=== PATIENT | male | born 1985 | race Caucasian/White ===

== ENCOUNTER 2022-12-09 11:18 | Outpatient (REF) | payer OTHER, SELFPAY ==
--- NOTE | ~2022-12-09 | XR_ITS ---
EXAMINATION: XR ELBOW, LEFT CLINICAL INFORMATION: Left elbow pain COMPARISON: 02/23/2019 TECHNIQUE: AP, lateral, and oblique views of the left elbow. FINDINGS: The bones and soft tissues are normal. No fracture or joint effusion. Alignment is anatomic. Joint spaces are maintained. Insertional enthesopathy noted. XR/XR elbow LT 2V IMPRESSION: No acute fracture or dislocation. Insertional enthesopathy noted.
== END 2022-12-09 11:19 | disposition home or self-care (01) ==
LOC: HO.XRAY 11:18
PROVIDERS: PCP Nurse Practitioner Family; Visit Provider Nurse Practitioner Family
DX: M25.522 Pain in left elbow (principal)
CPT/HCPCS: 73070

== ENCOUNTER 2023-02-02 11:52 | Outpatient (REF) | payer OTHER, SELFPAY ==
[2023-02-02 12:15] LABS: Hematocrit 44.8 % (42.0-52.0); Mean Corpuscular HGB Conc 35.7 g/dl (31.0-36.0); Mean Corpuscular Hemoglobin 32.9 pg (27.0-33.0); Mean Platelet Volume 9.5 fL (9.4-12.4); Platelet Count 193 X10*3/uL (160-400); Red Blood Count 4.87 X10*6/uL (4.60-5.80); Red Cell Distribution Width 13.4 % (11.0-16.0); White Blood Count 6.6 X10*3/uL (4.8-10.8)
[2023-02-02 12:30] LABS: Estimated Average Glucose 85 mg/dL; Hemoglobin A1c % 4.6 %
[2023-02-02 14:00] LABS: Vitamin D 25-OH Total 14.4 ng/mL (>30)
[2023-02-02 14:14] LABS: Alanine Aminotransferase 34 U/L (0-40); Albumin Level 4.6 g/dL (3.5-5.0); Alkaline Phosphatase 46 U/L (39-117); Anion Gap 17 (12-20); Aspartate Amino Transferase 30 U/L (5-37); Bilirubin Total 0.9 mg/dL (0.0-1.0); Blood Urea Nitrogen 15 mg/dL (9-16); Calcium 9.6 mg/dL (8.4-10.2); Carbon Dioxide 28 mmol/L (22-29); Chloride 100 mmol/L (96-108); Cholesterol 219 mg/dL; Estimated Glomerular Filt Rate > 60; Glucose Random 78 mg/dL (60-115); HDL Cholesterol 81 mg/dL; LDL Cholesterol Calculated 125 mg/dl; Potassium 4.2 mmol/L (3.3-5.1); Sodium 141 mmol/L (135-145); Total Protein 7.4 g/dL (6.5-8.0); Triglycerides 66 mg/dL
== END 2023-02-02 11:53 | disposition home or self-care (01) ==
LOC: HO.LAB 11:52
PROVIDERS: Visit Provider Nurse Practitioner Family
DX: Z13.0 Encounter for screening for diseases of the blood and blood-forming organs and certain disorders involving the immune mechanism (principal); Z13.29 Encounter for screening for other suspected endocrine disorder; Z13.220 Encounter for screening for lipoid disorders; Z13.21 Encounter for screening for nutritional disorder; E78.00 Pure hypercholesterolemia, unspecified; E03.9 Hypothyroidism, unspecified
CPT/HCPCS: 36415; 80053; 80061; 82306; 83036; 84443; 85027

== ENCOUNTER 2023-02-06 14:30 | Outpatient (RCR) | payer OTHER, SELFPAY ==
--- NOTE | 2022-12-26 08:05 | MHC.OT.EP ---
[address] [phone] Occupational Therapy Plan of Care Patient Name: Robert Leach Date of Evaluation: 12/26/22 Diagnosis: Left elbow pain Pain Location: Most pain free at rest Sharp/sore pain with use Radiates volar forearm to hand Pain Score: 8 Pain Scale Used: Numeric (0 - 10) Aggravating Factors: Full extension of arm, rotation, grabbing objects and general heavier use Alleviating Factors: Trialed ice and heat, using ibuprohen Assessment: 37 yo male was seen in walk-in clinic 12/08 w/ elbow pain and numbness in left D4-D5. He returned to PCP several days later w/ c/o bicep pain and pain and weakness in lower arm. X-ray (-) for acute changes. He has been referred to OT for continued assessment and management. On assessment, he demos fairly good range, but end range elbow extension is tight and he has some discomfort w/ supination. Left thumb and index flexors are weak, he has impaired FMC and is compensating w/ avoidance of index finger for functional tasks (hand writing, dexterity test, etc). He has tenderness top palpate volar forearm and towards left medial elbow. No signficiant pain in dorsal forearm or posterior elbow/upper arm. Gross grasp is weaknened compared to right but pt also reports he feels guarded. Symptoms are consistent with a median nerve compression and we have initiated treatment w/ nerve glides, heat and DTM. I anticipate he will do well w/ course of therapy for optimal return of range, strength and functional capacity. Frequency and Duration: The patient will be seen 2x/wk for 4 weeks Short Term Goals: Ind w/ HEP Pt to demo full active elbow extension Left gross grasp >90lb Pt to demo good use of index finger w/ light FMC task (ADL closure boards in clinic) Plate Fitter Goals: Left gross grasp >110lb QuickDASH score 30pts Pt to report pain free full active range Progress to strengthening porgram w/ ease Pt to demo lift and carry >40lb w/ ease Trial nighttime orthosis for resting wrist flexors Treatment Plan: Therapeutic Exercise Therapeutic Activity Home Exercise Program Splinting Neuro Re-ed Patient Education Desensitization/Sensory Re-ed ADL Training Ultrasound NMES Paraffin Fluidotherapy MHP Cold Packs Joint Mobilization Soft Tissue Mobilization Kinesiotaping Resting wrist orthosis Electronically Signed By: Susanne Scott OTR/L CHT Please Sign and return to therapist. Thank you once again for your referral.
--- NOTE | 2023-01-16 10:24 | MHC.OT.EP ---
[address] [phone] Occupational Therapy Plan of Care Patient Name: Robert Leach Date of Evaluation: 01/16/23 Diagnosis: Left elbow pain Pain Location: Most pain free at rest Sharp/sore pain with use Radiates volar forearm to hand Pain Score: 8 Pain Scale Used: Numeric (0 - 10) Aggravating Factors: Full extension of arm, rotation, grabbing objects and general heavier use Alleviating Factors: Trialed ice and heat, using ibuprohen Assessment: 37 yo male was seen in walk-in clinic 12/08 w/ elbow pain and numbness in left D4-D5. He returned to PCP several days later w/ c/o bicep pain and pain and weakness in lower arm. X-ray (-) for acute changes. He has been referred to OT for continued assessment and management. On assessment, he demos fairly good range, but end range elbow extension is tight and he has some discomfort w/ supination. Left thumb and index flexors are weak, he has impaired FMC and is compensating w/ avoidance of index finger for functional tasks (hand writing, dexterity test, etc). He has tenderness top palpate volar forearm and towards left medial elbow. No signficiant pain in dorsal forearm or posterior elbow/upper arm. Gross grasp is weaknened compared to right but pt also reports he feels guarded. Symptoms are consistent with a median nerve compression and we have initiated treatment w/ nerve glides, heat and DTM. I anticipate he will do well w/ course of therapy for optimal return of range, strength and functional capacity. Frequency and Duration: The patient will be seen 2x/wk for 3 weeks Short Term Goals: Ind w/ HEP Pt to demo full active elbow extension Left gross grasp >90lb Pt to demo good use of index finger w/ light FMC task (ADL closure boards in clinic) Rn Care Manager Goals: Left gross grasp >110lb QuickDASH score 30pts Pt to report pain free full active range Progress to strengthening porgram w/ ease Pt to demo lift and carry >40lb w/ ease Trial nighttime orthosis for resting wrist flexors Treatment Plan: Therapeutic Exercise Therapeutic Activity Home Exercise Program Splinting Neuro Re-ed Patient Education Edema Control ADL Training Ultrasound NMES Iontophoresis Fluidotherapy MHP Cold Packs Soft Tissue Mobilization Kinesiotaping Resting wrist orthosis Electronically Signed By: Susanne Scott OTR/L CHT Please Sign and return to therapist. Thank you once again for your referral.
--- NOTE | 2023-02-10 14:53 | MHC.OT.DC ---
[address] [phone] F: [phone] Occupational Therapy Discharge Note Patient Name: Robert Leach Provider: Dr Debbie Cornejo Diagnosis: Left elbow pain; Median nerve injury Date of Evaluation: 12/26/22 Date of Discharge: 02/06/23 Treatments to Date: 11 Discharge Status: Improved Function Independent with HEP Recommend MD Follow-up Discharge Summary: Robert was seen in OT for assessment of left arm pain and hand weakness. He has progressed fairly well with improvements in pain and strength, but still has significant weakness in left index finger. 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 He has been cleared to return to work and I anticipate he will do well, and nerve return will be slow but likely full return. I have advised him if he does not have further improvement in thumb and index strength over the next month, he may benefit from ortho consult and/or nerve conduction. Electronically Signed By: Susanne Scott OTR/Shannon CHT Reviewed/agree with student documentation: Therapist: Please Sign and return to therapist, thank you for your referral.
== END 2023-02-10 14:54 | disposition home or self-care (01) ==
LOC: HO.OT 14:30
PROVIDERS: PCP Nurse Practitioner Acute Care; Visit Provider Internal Medicine
DX: M75.22 Bicipital tendinitis, left shoulder (principal)
CPT/HCPCS: 29125; 97033; 97110; 97140; 97165; 97760

== ENCOUNTER 2023-05-25 15:52 | Outpatient (AMB) | payer BC, SELFPAY ==
[2023-05-25 16:01] VITALS: BP 162/98; PULSE 74; O2SAT 98; BMI 27.6
--- NOTE | 2023-05-25 16:01 | A.OFFPC_ITS ---
Vital Signs 05/25/23 16:01 Height 5 ft 7 in Weight 176 lb BMI 27.6 BP 162/98 H Blood Pressure Location Lt brachial Position Sitting Pulse 74 Pulse Source Pulse Oximeter Pulse Oximetry (%) 98 Oxygen Delivery Method Room Air Intake Visit Reasons: Transfer of care from [place] Allergies No Known Allergies Allergy (Verified 05/25/23 16:02) Tobacco use date assessed: 02/05/23 Dental Screening Dental Screen Date: 05/25/23 Did you have a dental visit in the last 12 months?: No Did you have a dental problem in the last 6 months where you did not have access to dental care?: No Was dental information given to patient?: No HPI Transfer of care from [place] HPI Details 38-year-old overweight male with a histo ry of carpal tunnel syndrome coming in for follow-up. First time being seen. Complains of weakness of the L 2nd finger and thumb - cannot flexor close into a fist, numbness on the L arm . Patient complains of this problem for more than 4 months already. Deny any fall or trauma patient was concerned about sleeping on it does not complain of any neck pain no nausea no vomiting no fevers no coughs no colds no bowel bladder symptoms. Persistence of this left hand weakness of the thumb bad and pointer finger prompting for consultation. 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 [facility] Medical History (Updated 05/25/23 @ 16:26 by Debbie Cornejo MD) Borderline hypercholesterolemia Alcohol abuse counseling and surveillance Left elbow pain ADD (attention deficit disorder) Thyroid nodule Surgical History History of partial thyroidectomy Family History Mother No problems noted. Father Medical history unknown Brother No problems noted. Social History Housing: House Alcohol intake: current Alcohol intake frequency: a few times a week Alcohol type: beer Patient Tobacco Use Status: Former Tobacco user Quit Date: quit 5 years ago Tobacco use type: Cigarette Years Smoked: pt states quit 5 yrs ago e-Cigarette/Vaping Use: Never Used service: No Current occupational status: employed Cognitive needs: No Hearing needs: No Vision needs: No Questionnaire PHQ-9 Over the last 2 weeks, how often have you been bothered by any of the following problems? 1. Little interest or pleasure in doing things: not at all 2. Feeling down, depressed, or hopeless: not at all 3. Trouble falling or staying asleep, or sleeping too much: not at all 4. Feeling tired or having little energy: not at all 5. Poor appetite or overeating: not at all 6. Feeling bad about yourself - or that you are a failure or have let yourself or your family down: not at all 7. Trouble concentrating on things, such as reading the newspaper or watching television: not at all 8. Moving or speaking so slowly that other people could have noticed. Or the opposite - being so fidgety or restless that you have been moving around a lot more than usual: not at all 9. Thoughts that you would be better off or of hurting yourself in some way: not at all Total score: 0 Depression Screening Interpretation: Negative 28534 - PHQ-9 Billing: Yes Source: Developed by Drs. Franco Manzano, Erick Balbuena and colleagues, with an educational juan pablo from [employer]. Thrive Questionnaire Date Thrive assessed: 01/16/23 AUDIT C Alcohol Use Questionnaire (AUDIT-C) 1. How often do you have a drink containing alcohol?: 2-3 times a week 2. How many drinks containing alcohol do you have on a typical day when you are drinking?: 3 or 4 3. How often do you have six or more drinks on one occasion?: Never Total Score: 4 Score Reviewed/Action Taken: Yes (Discussed health risks associate w/ alcohol use including Cirrhosis, LF) SYLVIE-7 AMB Questionnaire SYLVIE-7 Date SYLVIE - 7 assessed: 01/16/23 Source: Developed by Drs. Franco Manzano, Erick Balbuena and colleagues, with an educational juan pablo from [employer]. Physical exam (Primary Care) Vital Signs: Last Vital Signs Pulse 74 05/25/23 16:01 BP 162/98 H 05/25/23 16:01 Pulse Ox 98 05/25/23 16:01 Oxygen Delivery Method Room Air 05/25/23 16:01 BMI result Body Mass Index 27.6 Tobacco/Smoking Status: Tobacco use Status Tobacco use date assessed 02/05/23 05/25/23 16:07 Patient Tobacco Use Status Former Tobacco user 05/25/23 16:07 Tobacco use type Cigarette 05/25/23 16:07 e-Cigarette/Vaping Use Never Used 05/25/23 16:07 PHQ-9: PHQ-9 Score PHQ-9: Total score 0 05/25/23 16:22 Depression Screening Interpretation: Negative Thrive Assessment: Date of Thrive Assessment Date Thrive assessed 01/16/23 05/25/23 16:07 Const General: alert; No acute distress Eyes Conjunctivae: conjunctivae normal Resp Auscultation: clear to auscultation bilaterally Cardio Rate: regular rate Rhythm: regular rhythm GI Inspection: Yes normal to inspection Neuro Other: Patient complains of not able to flex left pointer finger DIP and left thumb DIP but tile edger is normal pulses good has some sensory deficit on the left volar surface of the for Extrem General: Yes normal to inspection and No edema Immunizations tetanus-diphtheria toxoids-Td 2 Lf unit-2 Lf unit/0.5 mL IM suspension Performing Provider: Debbie Cornejo MD Performing Location: [facility] Administered by: Aria Samuels CMA on 05/25/23 16:39 Dose Route Admin Location Dispensed Lot Number Expiration Date NDC Market Research Assistant 0.5 mL IM Left Deltoid 0.5 mL [id number] 01/18/24 [address]-3 [employer] VIS Given Date VIS Provided VIS Publication Date 05/25/23 Single Vaccine 21 Eligibility Eligibility Date Funding Source Not [facility] Eligible 05/25/23 State funds Assessment and Plan Assessment & Plan (1) Overweight (BMI 25.0-29.9): Code(s): E66.3 - Overweight Plan: diet and exercise (2) Elevated blood pressure reading in office without diagnosis of hypertension: Code(s): R03.0 - Elevated blood-pressure reading, without diagnosis of hypertension Plan: monitor BP at home. Long discussion with getting the blood pressure monitored to prevent cardiac complications (3) Thyroid nodule: Comment: right side of thyroid removed Code(s): E04.1 - Nontoxic single thyroid nodule Plan: blood work N (4) Left hand weakness: Code(s): R29.898 - Other symptoms and signs involving the musculoskeletal system Plan: will do NCV and EMG Orders: Orders NE nerve conduction velocity Today R29.898 - Other symptoms and signs involving the musculoskeletal system NE electromyogram (EMG) Today R29.898 - Other symptoms and signs involving the musculoskeletal system Coding Level of Care Code Est Pt Level 4 (34445) Diagnoses Overweight (BMI 25.0-29.9) E66.3 Elevated blood pressure reading in office without diagnosis of hypertension R03.0 Thyroid nodule E04.1 Left hand weakness R29.898
== END 2023-05-25 16:45 | disposition home or self-care (01) ==
PROVIDERS: PCP Internal Medicine; Visit Provider Internal Medicine
DX: E66.3 Overweight (principal); R03.0 Elevated blood-pressure reading, without diagnosis of hypertension; E04.1 Nontoxic single thyroid nodule; R29.898 Other symptoms and signs involving the musculoskeletal system; Z23 Encounter for immunization
CPT/HCPCS: 90471; 90714; 99214

== ENCOUNTER 2023-06-12 13:21 | Outpatient (REF) | payer BC, SELFPAY ==
--- NOTE | 2023-06-12 | EMG_ITS ---
Chief complaint: Left hand weakness Reason for referral: Evaluate for neuropathy Referred by: Dr. Cornejo Procedure done: Left upper extremity NCS/EMG Precautions and/or limitations: None The limb temperature was monitored continuously and remained between 32-36 degrees C during the performance of the NCS. Nerve Conduction Studies Anti Sensory Summary Table ?Stim Site NR Onset (ms) Norm Onset (ms) Peak (ms) Norm Peak (ms) O-P Amp (?V) Norm O-P Amp Site1 Site2 Delta-0 (ms) Dist (cm) Nathony (m/s) Norm Anthony (m/s) Left Median Anti Sensory (2nd Digit) Wrist ? 2.5 3.3 <3.6 16.7 >10 Wrist 2nd Digit 2.5 14.0 56 Left Ulnar Anti Sensory (5th Digit) Wrist ? 1.1 3.4 <3.7 19.9 >15.0 Wrist 5th Digit 1.1 14.0 127 Motor Summary Table ?Stim Site NR Onset (ms) Norm Onset (ms) O-P Amp (mV) Norm O-P Amp iAmp (mV) Amp (1st) (%) Site1 Site2 Delta-0 (ms) Dist (cm) Anthony (m/s) Norm Anthony (m/s) Left Median Motor (Abd Poll Brev) Wrist ? 3.2 <3.9 8.4 >4.5 11.2 100.0 Elbow Wrist 3.8 20.5 54 >45 Elbow ? 7.0 8.0 10.6 95.2 Left Ulnar Motor (Abd Dig Minimi) Wrist ? 2.4 <3.0 5.0 >5 5.8 100.0 B Elbow Wrist 3.3 18.0 55 >45 B Elbow ? 5.7 5.2 6.3 104.0 A Elbow B Elbow 1.4 10.0 71 >45 A Elbow ? 7.1 4.4 5.6 88.0 Comparison Summary Table ?Stim Site NR Peak (ms) Norm Peak (ms) P-T Amp (?V) Site1 Site2 Delta-P (ms) Norm Delta (ms) Left Median/Radial Dig I Comparison (Digit 1 - 10cm) Median ? 2.8 <2.9 44.6 Median Radial 0.1 Radial ? 2.7 <2.8 28.8 EMG ?Side Muscle Nerve Root Ins Act Fibs Psw Amp Dur Poly Recrt Int Pat Comment Left 1stDorInt Ulnar C8-T1 Nml Nml Nml Nml Nml 0 Nml Complete Left FlexCarRad Median C6-7 Nml Nml Nml Nml Nml 0 Nml Complete Left Biceps Musculocut C5-6 Nml Nml Nml Nml Nml 0 Nml Complete Left Triceps Radial C6-7-8 Nml Nml Nml Nml Nml 0 Nml Complete Left Deltoid Axillary C5-6 Nml Nml Nml Nml Nml 0 Nml Complete FINDINGS: All motor and sensory nerves tested showed normal latencies, amplitudes and conduction velocities. Concentric needle EMG was performed in selected muscles of the left upper extremity. Study did not reveal signs of electric abnormalities as shown in the table below. IMPRESSION: 1. This is a normal study. 2. There is no electrodiagnostic evidence for median neuropathy, ulnar neuropathy, brachial plexopathy, or cervical radiculopathy. Thank you for your kind referral. Sowmya Palomares MD, NATALYA Board Certified, [place] Board of Physical Medicine and Rehabilitation (ABPMR) Board Certified, [place] Board of Electrodiagnostic Medicine (ABEM) CODIN [id number] [facility]
== END 2023-06-12 13:22 | disposition home or self-care (01) ==
LOC: HO.NEURO 13:21
PROVIDERS: PCP Internal Medicine; Visit Provider Internal Medicine
DX: R29.898 Other symptoms and signs involving the musculoskeletal system (principal)
CPT/HCPCS: 95886; 95909

== ENCOUNTER → 2023-06-12 13:29 | Outpatient (BNV) | payer BC, SELFPAY | PROVIDERS: PCP Internal Medicine; Visit Provider Physical Medicine & Rehabilitation | DX: R53.1 Weakness (principal) | CPT/HCPCS: 95886; 95909 ==

== ENCOUNTER 2023-07-08 10:40 | Outpatient (AMB) | payer BC, SELFPAY ==
[2023-07-08 10:47] VITALS: BP 130/90; PULSE 75; O2SAT 98; BMI 27.4
--- NOTE | 2023-07-08 10:47 | MHC.PC.OV ---
Vital Signs 07/08/23 10:47 Height 5 ft 7 in Weight 175 lb BMI 27.4 BP 130/90 H Blood Pressure Location Lt brachial Position Sitting Pulse 75 Pulse Source Pulse Oximeter Pulse Oximetry (%) 98 Oxygen Delivery Method Room Air Intake Visit Reasons: Blood pressure elevation, left hand numbness Intake Note: Patient here for elevated blood pressure and left hand numbness Supervisor Powdered Sugar Required: No Accompanied by: Self / Same As Patient Allergies No Known Allergies Allergy (Verified 07/08/23 10:49) Tobacco use date assessed: 02/05/23 Dental Screening Dental Screen Date: 07/08/23 Did you have a dental visit in the last 12 months?: No Did you have a dental problem in the last 6 months where you did not have access to dental care?: No Was dental information given to patient?: Patient has dentist HPI Blood pressure elevation, left hand numbness HPI Details 38-year-old overweight male seen last May 2023 having an elevated blood pressure patient was advised to follow-up. Patient also has the history of thyroid nodule and left hand weakness nerve conduction requested. Results came up normal study and was referred to orthopedics. patient has been checking the BP at home night good but the violet . bunion R foot concern [facility] Medical History (Updated 07/08/23 @ 11:43 by Debbie Cornejo MD) Borderline hypercholesterolemia Alcohol abuse counseling and surveillance Left elbow pain ADD (attention deficit disorder) Thyroid nodule Surgical History History of partial thyroidectomy Family History Mother No problems noted. Father Medical history unknown Brother No problems noted. Social History Housing: House Alcohol intake: current Alcohol intake frequency: a few times a week Alcohol type: beer Patient Tobacco Use Status: Former Tobacco user Quit Date: quit 5 years ago Tobacco use type: Cigarette Years Smoked: pt states quit 5 yrs ago e-Cigarette/Vaping Use: Never Used service: No Current occupational status: employed Current occupational exposures/hazards: No Cognitive needs: No Hearing needs: No Vision needs: No Questionnaire Thrive Questionnaire Date Thrive assessed: 01/16/23 SYLVIE-7 AMB Questionnaire SYLVIE-7 Date SYLVIE - 7 assessed: 01/16/23 Source: Developed by Drs. Franco Manzano, Alyssa Bautista, Erick Santiago and colleagues, with an educational juan pablo from [employer]. Physical exam (Primary Care) Vital Signs: Last Vital Signs Pulse 75 07/08/23 10:47 BP 130/90 H 07/08/23 10:47 Pulse Ox 98 07/08/23 10:47 Oxygen Delivery Method Room Air 07/08/23 10:47 BMI result Body Mass Index 27.4 Tobacco/Smoking Status: Tobacco use Status Tobacco use date assessed 02/05/23 07/08/23 10:50 Patient Tobacco Use Status Former Tobacco user 07/08/23 10:50 Tobacco use type Cigarette 07/08/23 10:50 e-Cigarette/Vaping Use Never Used 07/08/23 10:50 Thrive Assessment: Date of Thrive Assessment Date Thrive assessed 01/16/23 07/08/23 10:50 Const General: alert; No acute distress Eyes Conjunctivae: conjunctivae normal Resp Auscultation: clear to auscultation bilaterally Cardio Rate: regular rate Rhythm: regular rhythm GI Inspection: Yes normal to inspection Extrem General: Yes normal to inspection and No edema Office Procedures Flu Questionnaire Does the patient have a severe egg allergy?: No Immunizations flu vacc [id number] 6mos up(PF) 60 mcg(15 mcgx4)/0.5 mL IM syringe Performing Provider: Debbie Cornejo MD [facility] Documented (not given) by: LILIANE Mcdonald on 07/08/23 10:52 Reason Not Given: Patient Refused Assessment and Plan Assessment & Plan (1) Overweight (BMI 25.0-29.9): Code(s): E66.3 - Overweight Plan: Exercise and diet (2) Elevated blood pressure reading in office without diagnosis of hypertension: Code(s): R03.0 - Elevated blood-pressure reading, without diagnosis of hypertension Plan: Noted blood pressure to be getting better but still having diastolic elevation (3) Left hand weakness: Code(s): R29.898 - Other symptoms and signs involving the musculoskeletal system Plan: Workup for nerve conduction test negative. With patient complaining of no control of finger movement will refer to Neurology (4) Hypertension: Code(s): I10 - Essential (primary) hypertension Plan: Start on blood pressure medications, low-salt diet and continue to monitor (5) Bunion of great toe of right foot: Code(s): M21.611 - Bunion of right foot Plan: Referral to podiatry Orders: Orders Influenza [id number] Immunization Today Z23 - Encounter for immunization US renal doppler Today I10 - Essential (primary) hypertension Referrals Neurology Referral R29.898 - Other symptoms and signs involving the musculoskeletal system Podiatry Referral M21.611 - Bunion of right foot Medications: New hydrochlorothiazide 12.5 mg PO DAILY 30 tabs 3RF I10 - Essential (primary) hypertension Coding Level of Care Code Est Pt Level 4 (29216) Diagnoses Overweight (BMI 25.0-29.9) E66.3 Elevated blood pressure reading in office without diagnosis of hypertension R03.0 Left hand weakness R29.898 Hypertension I10 Bunion of great toe of right foot M21.611
== END 2023-07-08 11:50 | disposition home or self-care (01) ==
PROVIDERS: PCP Internal Medicine; Visit Provider Internal Medicine
DX: R03.0 Elevated blood-pressure reading, without diagnosis of hypertension (principal); E66.3 Overweight; R29.898 Other symptoms and signs involving the musculoskeletal system; I10 Essential (primary) hypertension; M21.611 Bunion of right foot
CPT/HCPCS: 99214

== ENCOUNTER 2023-09-16 10:00 | Outpatient (AMB) | payer BC, SELFPAY ==
--- NOTE | 2023-09-16 10:17 | MHC.OFFVIS ---
Intake Vital Signs 09/16/23 10:20 Height 5 ft 7 in Weight 175 lb BMI 27.4 BP 130/98 H Blood Pressure Location Rt brachial Position Sitting Intake Visit Reasons: INP-signs involving muskoeskeletal - LVM Intake Note: Patient presents for new evaluation. Allergies No Known Allergies Allergy (Verified 09/16/23 10:19) HPI HPI Comments History of Present Illness Details 38 y/o male patient present for new in-person visit for evaluation of left hand weakness. Pt reports that his left hand weakness started quite a while ago, maybe last November or December. He woke with left arm pain which started from left biceps and slowly radiated to elbow and wrist. He thinks he slept on his left arm the night before, but not sure what caused the pain. Now the left arm pain has improved but feels left thumb weakness, and the last digit of left index finger can't bend. The weakness started after a month the arm pain started. Pt reports no left arm pain but has pain on his left wrist when he touch, or flex hard. He can have numbness and tingling on his left wrist and fingers. He had OT and tried compression sleeve, and and finger exercise. Pain has improved but not help for the index finger movement or thumb weakness. Left upper extremity EMG result was normal. Left elbow xray result was insertional enthesopathy. [facility] Medical History (Updated 09/16/23 @ 10:49 by Richa Cano CNP) Borderline hypercholesterolemia Alcohol abuse counseling and surveillance Left elbow pain ADD (attention deficit disorder) Thyroid nodule Surgical History History of partial thyroidectomy Family History Mother No problems noted. Father Medical history unknown Brother No problems noted. Social History Housing: House Alcohol intake: current Alcohol intake frequency: a few times a week Alcohol type: beer Patient Tobacco Use Status: Former Tobacco user Quit Date: quit 5 years ago Tobacco use type: Cigarette Years Smoked: pt states quit 5 yrs ago e-Cigarette/Vaping Use: Never Used service: No Current occupational status: employed Current occupational exposures/hazards: No Cognitive needs: No Hearing needs: No Vision needs: No Review of Systems Const All systems reviewed & are unremarkable except as noted in HPI and below Physical Exam Vital Signs: Last Vital Signs BP 130/98 H 09/16/23 10:20 BMI result Body Mass Index 27.4 Const General: healthy appearing Orientation/consciousness: patient oriented x3 Neck Neck: Yes full ROM and Yes supple Resp Effort & Inspection: normal respiratory effort and able to speak in complete sentences Neuro Other: left hand graip slightly weaker. Hyper react on left wrist. General: patient oriented x3, gait normal and CN's II-XI intact bilaterally Cognition (Neuro): normal cognition Gait exam (Neuro): Normal gait present Deep tendon reflexes (DTR's): Rt Biceps (C5, C6): 2+, Left biceps reflex intensity grade: 2+, Right brachioradialis reflex intensity grade: 2+ and Left brachioradialis reflex intensity grade: 2+ Extrem Other: Pain when tap his ulna. Psych Appearance: grossly normal Mental Status: mental status grossly normal Affect: normal affect Assessment & Plan Assessment & Plan (1) Left wrist pain: Code(s): M25.532 - Pain in left wrist (2) Left hand weakness: Code(s): R29.898 - Other symptoms and signs involving the musculoskeletal system Plan Refer patient to ortho for further evaluation of left wrist pain and left hand weakness. Orders: Referrals Orthopedics Referral M25.532 - Pain in left wrist, R29.898 - Other symptoms and signs involving the musculoskeletal system Coding Level of Care Code New Pt Level 3 (08214) Diagnoses Left wrist pain M25.532 Left hand weakness R29.898
[2023-09-16 10:20] VITALS: BP 130/98; BMI 27.4
== END 2023-09-16 10:53 | disposition home or self-care (01) ==
PROVIDERS: PCP Internal Medicine; Visit Provider Nurse Practitioner Family
DX: M25.532 Pain in left wrist (principal); R29.898 Other symptoms and signs involving the musculoskeletal system
CPT/HCPCS: 99203

== ENCOUNTER → 2023-09-16 10:00 | Outpatient (BNVA) | payer BC, SELFPAY | PROVIDERS: PCP Internal Medicine; Visit Provider Nurse Practitioner Family ==

== ENCOUNTER 2023-11-26 15:45 | Outpatient (AMB) | payer BC, SELFPAY ==
[2023-11-26 15:46] VITALS: BP 136/90; PULSE 87; O2SAT 98; BMI 27.4
--- NOTE | 2023-11-26 15:46 | MHC.PC.OV ---
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 Last seen in 07/08/2023 concern about elevated blood pressure reading had left hand weakness and was referred to Neurology and also complained of right foot bunion. Review of the notes has seen Neurology and did not see any neurological problem so patient was referred to ortho. was moving a gril and fell and popped a calf muscle prompting consult. as for BP - stopped med and now notice high - will start taking BP med [facility] Medical History (Updated 11/26/23 @ 16:05 by Debbie Cornejo MD) Borderline hypercholesterolemia Alcohol abuse counseling and surveillance Left elbow pain ADD (attention deficit disorder) Thyroid nodule Surgical History History of partial thyroidectomy Family History Mother No problems noted. Father Medical history unknown Brother No problems noted. Social History Housing: House Alcohol intake: current Alcohol intake frequency: a few times a week Alcohol type: beer Patient Tobacco Use Status: Former Tobacco user Quit Date: quit 5 years ago Tobacco use type: Cigarette Years Smoked: pt states quit 5 yrs ago e-Cigarette/Vaping Use: Never Used service: No Current occupational status: employed Current occupational exposures/hazards: No Cognitive needs: No Hearing needs: No Vision needs: No Questionnaire PHQ-9 Over the last 2 weeks, how often have you been bothered by any of the following problems? 1. Little interest or pleasure in doing things: not at all 2. Feeling down, depressed, or hopeless: not at all 3. Trouble falling or staying asleep, or sleeping too much: not at all 4. Feeling tired or having little energy: not at all 5. Poor appetite or overeating: not at all 6. Feeling bad about yourself - or that you are a failure or have let yourself or your family down: not at all 7. Trouble concentrating on things, such as reading the newspaper or watching television: not at all 8. Moving or speaking so slowly that other people could have noticed. Or the opposite - being so fidgety or restless that you have been moving around a lot more than usual: not at all 9. Thoughts that you would be better off or of hurting yourself in some way: not at all Total score: 0 Depression Screening Interpretation: Negative Depression Screening Done: Yes 84836 - PHQ-9 Billing: Yes Source: Developed by Drs. Franco Manzano, Alyssa Bautista, Erick Santiago and colleagues, with an educational juan pablo from [employer]. Thrive Questionnaire Date Thrive assessed: 11/26/23 I am a: Patient What is your living situation today?: I have a steady place to live Within the past 12 months, did the food you bought not last and you didn't have the money to get more?: Never true Within the past 12 months, did you worry whether your food would run out before you got money to buy more?: Never true Do you have trouble paying for medicines?: No Do you have trouble getting transportation to medical appointments?: No Do you have trouble paying your heating and electricity bill?: No Do you have trouble taking care of your child, family member or friend?: No Do you have trouble with day-to-day activities such as bathing, preparing meals, shopping, managing finances, etc.?: No Are you currently unemployed and looking for a job?: No Are you interested in more education?: No Please select the resources that you would like help with: None THRIVE Score: 0 AUDIT C Alcohol Use Questionnaire (AUDIT-C) 1. How often do you have a drink containing alcohol?: 2-3 times a week 2. How many drinks containing alcohol do you have on a typical day when you are drinking?: 3 or 4 3. How often do you have six or more drinks on one occasion?: Never Total Score: 4 Score Reviewed/Action Taken: Yes (Discussed health risks associate w/ alcohol use including Cirrhosis, LF) SYLVIE-7 AMB Questionnaire SYLVIE-7 Date SYLVIE - 7 assessed: 11/26/23 Feeling nervous, anxious, or on edge: 0 = Not at all Not being able to stop or control worryin = Not at all Worrying too much about different things: 0 = Not at all Trouble relaxin = Not at all Being so restless that it is hard to sit still: 0 = Not at all Becoming easily annoyed or irritable: 0 = Not at all Feeling afraid as if something awful might happen: 0 = Not at all Total SYLVIE-7 score (0-4 normal; 5-9 mild; 10-14 moderate; 15-21 severe): 0 Source: Developed by Drs. Franco Manzano, Alyssa Bautista, Erick Santiago and colleagues, with an educational juan pablo from [employer]. Physical exam (Primary Care) Vital Signs: Last Vital Signs Pulse 87 11/26/23 15:46 BP 136/90 H 11/26/23 15:46 Pulse Ox 98 11/26/23 15:46 Oxygen Delivery Method Room Air 11/26/23 15:46 BMI result Body Mass Index 27.4 Tobacco/Smoking Status: Tobacco use Status Tobacco use date assessed 11/26/23 11/26/23 15:47 Patient Tobacco Use Status Former Tobacco user 11/26/23 15:47 Tobacco use type Cigarette 11/26/23 15:47 e-Cigarette/Vaping Use Never Used 11/26/23 15:47 PHQ-9: PHQ-9 Score PHQ-9: Total score 0 11/26/23 15:47 Depression Screening Interpretation: Negative Thrive Assessment: Date of Thrive Assessment Date Thrive assessed 11/26/23 11/26/23 15:47 Const General: alert; No acute distress Eyes Conjunctivae: conjunctivae normal Resp Auscultation: clear to auscultation bilaterally Cardio Rate: regular rate Rhythm: regular rhythm GI Inspection: Yes normal to inspection Extrem General: Yes normal to inspection and No edema Assessment and Plan Assessment & Plan (1) Left elbow pain: Code(s): M25.522 - Pain in left elbow Plan: Patient has been referred to orthopedic but this has resolved (2) Overweight (BMI 25.0-29.9): Code(s): E66.3 - Overweight Plan: Diet and exercise (3) Hypertension: Code(s): I10 - Essential (primary) hypertension Plan: Continue with blood pressure medication. Decrease salt intake and exercise presently on hydrochlorothiazide 12.5 mg once a day. Patient admits to just starting the hydrochlorothiazide and will continue on to monitor. Stressed the patient the importance of getting blood pressure under control. (4) Right calf pain: Code(s): M79.661 - Pain in right lower leg Plan: Requested and the advised to do exercises for the calf. Orders: Orders XR knee RT 2V Today M79.661 - Pain in right lower leg XR tibia fibula RT 2V Today M79.661 - Pain in right lower leg Coding Level of Care Code Est Pt Level 4 (70659) Diagnoses Left elbow pain M25.522 Overweight (BMI 25.0-29.9) E66.3 Hypertension I10 Right calf pain M79.661
== END 2023-11-26 16:19 | disposition home or self-care (01) ==
PROVIDERS: PCP Internal Medicine; Visit Provider Internal Medicine
DX: M25.522 Pain in left elbow (principal); E66.3 Overweight; I10 Essential (primary) hypertension; M79.661 Pain in right lower leg
CPT/HCPCS: 99214

== ENCOUNTER 2023-11-27 14:37 | Outpatient (REF) | payer BC, SELFPAY ==
--- NOTE | ~2023-11-27 | XR_ITS ---
EXAMINATION: 1. RADIOGRAPHS LEFT HAND 2. RADIOGRAPHS RIGHT KNEE 3. RADIOGRAPHS RIGHT TIBIA/FIBULA CLINICAL INFORMATION: Diffuse pain COMPARISON: None TECHNIQUE: 3 views of the left hand, 2 views of the right knee and 2 views of the right tibia/fibular were obtained. FINDINGS: Left hand: Visualized portion of the distal radius and ulna demonstrate no fracture. Carpal rows are well-maintained. No carpal bone fracture. No metacarpal or phalangeal fracture. No significant degenerative changes. No focal soft tissue swelling. No radiopaque foreign body. Right knee/tibia/fibula: No fracture or dislocation of the right knee. No right knee suprapatellar joint effusion. No appreciable degenerative changes of the right knee. No localized soft tissue swelling of the right knee. No fracture of the right tibia or fibula. No localized soft tissue swelling of the right calf. The right ankle is grossly unremarkable. No right ankle joint effusion. XR/XR knee RT 2V IMPRESSION: 1. Unremarkable radiographs of the left hand. 2. Unremarkable radiographs of the right knee/tibia/fibula.
--- NOTE | ~2023-11-27 | XR_ITS ---
EXAMINATION: 1. RADIOGRAPHS LEFT HAND 2. RADIOGRAPHS RIGHT KNEE 3. RADIOGRAPHS RIGHT TIBIA/FIBULA CLINICAL INFORMATION: Diffuse pain COMPARISON: None TECHNIQUE: 3 views of the left hand, 2 views of the right knee and 2 views of the right tibia/fibular were obtained. FINDINGS: Left hand: Visualized portion of the distal radius and ulna demonstrate no fracture. Carpal rows are well-maintained. No carpal bone fracture. No metacarpal or phalangeal fracture. No significant degenerative changes. No focal soft tissue swelling. No radiopaque foreign body. Right knee/tibia/fibula: No fracture or dislocation of the right knee. No right knee suprapatellar joint effusion. No appreciable degenerative changes of the right knee. No localized soft tissue swelling of the right knee. No fracture of the right tibia or fibula. No localized soft tissue swelling of the right calf. The right ankle is grossly unremarkable. No right ankle joint effusion. XR/XR tibia fibula RT 2V IMPRESSION: 1. Unremarkable radiographs of the left hand. 2. Unremarkable radiographs of the right knee/tibia/fibula.
== END 2023-11-27 14:38 | disposition home or self-care (01) ==
LOC: HO.XRAY 14:37
PROVIDERS: PCP Physician Assistant; Visit Provider Physician Assistant
DX: M79.661 Pain in right lower leg (principal)
CPT/HCPCS: 73560; 73590

== ENCOUNTER 2023-12-02 05:45 | Outpatient (REF) | payer BC, SELFPAY ==
--- NOTE | ~2023-12-02 | XR_ITS ---
EXAMINATION: 1. RADIOGRAPHS LEFT HAND 2. RADIOGRAPHS RIGHT KNEE 3. RADIOGRAPHS RIGHT TIBIA/FIBULA CLINICAL INFORMATION: Diffuse pain COMPARISON: None TECHNIQUE: 3 views of the left hand, 2 views of the right knee and 2 views of the right tibia/fibular were obtained. FINDINGS: Left hand: Visualized portion of the distal radius and ulna demonstrate no fracture. Carpal rows are well-maintained. No carpal bone fracture. No metacarpal or phalangeal fracture. No significant degenerative changes. No focal soft tissue swelling. No radiopaque foreign body. Right knee/tibia/fibula: No fracture or dislocation of the right knee. No right knee suprapatellar joint effusion. No appreciable degenerative changes of the right knee. No localized soft tissue swelling of the right knee. No fracture of the right tibia or fibula. No localized soft tissue swelling of the right calf. The right ankle is grossly unremarkable. No right ankle joint effusion. XR/XR hand LT min 3V IMPRESSION: 1. Unremarkable radiographs of the left hand. 2. Unremarkable radiographs of the right knee/tibia/fibula.
== END 2023-12-02 05:46 | disposition home or self-care (01) ==
LOC: HO.HOSX 05:45
PROVIDERS: Visit Provider Physician Assistant
DX: M79.642 Pain in left hand (principal); M25.532 Pain in left wrist; R29.898 Other symptoms and signs involving the musculoskeletal system
CPT/HCPCS: 73130

== ENCOUNTER 2023-12-02 07:57 | Outpatient (AMB) | payer BC, SELFPAY ==
--- NOTE | 2023-12-02 08:08 | MHC.OFFVIS ---
Intake Vital Signs 12/02/23 08:10 Height 5 ft 7 in Weight 175 lb BMI 27.4 Handedness Left Intake Visit Reasons: OV-Left wrist pain, and left hand weakness Intake Note: Robert valencia 38 year old left hand dominant male presents today for an evaluation of left hand weakness and left wrist pain. Patient reports weakness in hand presented last November or December. EMG done. He has tried OT, at home finger exercises and use of compression sleeve with improvement in pain however no improvement in index finger movement or thumb weakness. He states that his pain has gotten a little better with alternating with ice and heat, all so taking ibuprofen. Allergies No Known Allergies Allergy (Verified 12/02/23 08:12) Medication List - Last Reconciled 12/02/23 by Rosetta Henning PA-C hydrochlorothiazide 12.5 mg PO DAILY HPI OV-Left wrist pain, and left hand weakness HPI Details 38-year-old left hand dominant male who presents to the office today for evaluation of left thumb and index finger weakness. He states about a year ago he remembers waking up from a sleep and having left arm pain that originated around the bicep area and extended down the arm. He states he completed occupational therapy, home exercises, and used compression sleeve with benefits in the forearm; however he had no improvement in his index finger and thumb. He currently states he has improvement in his index finger and thumb pain however he is unable to bend his left index finger. He denies any elbow pain or locking in his fingers. He finds relief with ice and heat treatment, and ibuprofen. He also had a EMG study on his left hand. [facility] Medical History (Updated 11/26/23 @ 16:05 by Debbie Cornejo MD) Borderline hypercholesterolemia Alcohol abuse counseling and surveillance Left elbow pain ADD (attention deficit disorder) Thyroid nodule Surgical History History of partial thyroidectomy Family History Mother No problems noted. Father Medical history unknown Brother No problems noted. 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 Current occupational exposures/hazards: No Cognitive needs: No Hearing needs: No Vision needs: No Review of Systems Const All systems reviewed & are unremarkable except as noted in HPI and below Physical Exam Vital Signs: BMI result Body Mass Index 27.4 Const General: cooperative, healthy appearing, comfortable, no acute distress, well developed and alert Orientation/consciousness: patient oriented x3 HEENT Head: Yes normal to inspection, Yes normocephalic and Yes atraumatic Eyes General: appearance normal, both eyes and all related structures Resp Effort & Inspection: normal respiratory effort and able to speak in complete sentences Cardio Rate: regular rate Peripheral pulses: Peripheral pulses 2+ throughout GI Palpation (GI): Soft to palpation Skin Lesions: no lesions Rashes: no rashes Neuro General: patient oriented x3 Extrem Other: Left hand: Normal to inspection. He is able to make a full fist and extend all digits. No catching or locking of any digits. No numbness and tingling on exam today. Wrist flexion and extension is intact. Negative carpal and cubital tunnel. Left index finger: He has some difficulty with flexion of the distal phalanx. He is able to activate this to about 45 degrees however when asked to initiate the motion again, he was unable to do so. Results Reviewed Results Reviewed: X-rays of the left hand obtained in the office today is negative for any acute or chronic abnormalities. Assessment & Plan Assessment & Plan (1) Left wrist pain: Code(s): M25.532 - Pain in left wrist (2) Left hand weakness: Code(s): R29.898 - Other symptoms and signs involving the musculoskeletal system Plan Case was discussed with Dr. Morales in the office today. It is likely that he is experiencing pain due to anterior interosseous nerve syndrome which may happen due to compression of the nerve vs neuritis. He does have improvement in his symptoms since several day and therefore he would like to continue with conservative treatment. I did offer him formal occupational therapy however he is comfortable with his previous therapy exercises of the finger. If symptoms persist or worsens, patient will contact the office, otherwise follow-up as needed. Orders: Orders XR hand LT min 3V Today M79.642 - Pain in left hand Patient Instructions: Scribed for Rosetta Henning PA-C, by Jonn Fam, biomedical electronics technician, on 12/02/2023 at 8:00 AM EST. I, Rosetta Henning PA-C, have personally reviewed and agree with the information entered by the scribe. Coding Level of Care Code New Pt Level 3 (07865) Diagnoses Left wrist pain M25.532 Left hand weakness R29.898
[2023-12-02 08:10] VITALS: BMI 27.4
== END 2023-12-02 08:54 | disposition home or self-care (01) ==
PROVIDERS: PCP Internal Medicine; Visit Provider Physician Assistant
DX: M25.532 Pain in left wrist (principal); R29.898 Other symptoms and signs involving the musculoskeletal system
CPT/HCPCS: 99203

== ENCOUNTER 2024-03-21 13:05 | Outpatient (AMB) | payer BC, SELFPAY ==
[2024-03-21 13:16] VITALS: BP 128/80; PULSE 74; TEMP 36.6; O2SAT 97; BMI 28.4
--- NOTE | 2024-03-21 13:16 | MHC.OFFWIV ---
Intake Vital Signs 03/21/24 13:16 Height 5 ft 7 in Weight 181 lb 6 oz BMI 28.4 BP 128/80 Blood Pressure Location Rt brachial Position Sitting Pulse 74 Pulse Source Pulse Oximeter Temp 97.8 F Temp Source Temporal Artery Scan Pulse Oximetry (%) 97 Intake Visit Reasons: EP ?eye infection Intake Note: pt is here for eye infection Patient Tobacco Use Status: Former Tobacco user Allergies No Known Allergies Allergy (Verified 03/21/24 13:16) Medication List - Last Reconciled 03/21/24 by Mirella Rodriguez NP hydrochlorothiazide 12.5 mg PO DAILY Do you need a note to return to daycare/school/sports/work: No HPI EP ?eye infection HPI Details This note is constructed using voice recognition software. While every effort has been made to ensure accuracy, [employer] clerk errors may have been included. 39-year-old male patient presents with right upper eyelid rash. He notes that this has happened in the past, recurring every 10-15 years since his childhood when he had an infection in the eye. He has been advised that this is herpes, and he has been treated the same each time throughout his life. He notes recently being treated for conjunctivitis, which has resolved. No discharge, warmth, itch, pain. He notes in the past he has been treated with topical ointment, which he would like to do again. He denies any change in his vision, or intra ocular movement pain. [facility] Medical History (Updated 11/26/23 @ 16:05 by Debbie Cornejo MD) Borderline hypercholesterolemia Alcohol abuse counseling and surveillance Left elbow pain ADD (attention deficit disorder) Thyroid nodule Surgical History History of partial thyroidectomy Family History Mother No problems noted. Father Medical history unknown Brother No problems noted. 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 Current occupational exposures/hazards: No Cognitive needs: No Hearing needs: No Vision needs: No Review of Systems Const All systems reviewed & are unremarkable except as noted in HPI and below Physical Exam Vital Signs: Last Vital Signs Temp 97.8 F 03/21/24 13:16 Pulse 74 03/21/24 13:16 BP 128/80 03/21/24 13:16 Pulse Ox 97 03/21/24 13:16 BMI result Body Mass Index 28.4 Const General: cooperative, healthy appearing, comfortable, no acute distress and alert Orientation/consciousness: patient oriented x3 Limitations: no limitations HEENT Head: Yes normal to inspection and Yes normocephalic Eyes General: appearance normal, both eyes and all related structures Alignment and Position: alignment normal and position normal Conjunctivae: conjunctivae normal Pupils: Equal, round and reactive pupils present EOM: EOMs intact bilaterally Skin Other: Cluster of blisters on the right upper eyelid. General skin exam: elasticity normal and turgor normal Neuro General: patient oriented x3 Cranial nerves: Yes Equal, round and reactive pupils present Psych Appearance: grossly normal Mental Status: mental status grossly normal Speech and movement: Normal speech and movement present Affect: normal affect Assessment & Plan Assessment & Plan (1) Herpes: Code(s): B00.9 - Herpesviral infection, unspecified Plan: Topical antiviral ordered. Advised follow up with any worsening symptoms, particularly if he should develop any difficulty with vision. Follow-up as needed with worsening symptoms or failure to resolve. Plan See above for full details and plan. Medications: New acyclovir 5% (Zovirax) Apply to upper eye lid 1 appl topical .five times per day 4 days 5 grams 0RF Coding Level of Care Code Est Pt Level 3 (77804) Diagnoses Herpes B00.9
== END 2024-03-21 13:50 | disposition home or self-care (01) ==
PROVIDERS: PCP Physician Assistant; Visit Provider Registered Nurse
DX: B00.9 Herpesviral infection, unspecified (principal)
CPT/HCPCS: 99213

== ENCOUNTER → 2024-03-30 13:56 | Outpatient (BNVA) | payer OTHER, SELFPAY | PROVIDERS: PCP Physician Assistant; Visit Provider Registered Nurse | DX: S61.011A Laceration without foreign body of right thumb without damage to nail, initial encounter (principal); W26.8XXA Contact with other sharp object(s), not elsewhere classified, initial encounter | CPT/HCPCS: 99203 ==

== ENCOUNTER → 2024-04-01 09:02 | Outpatient (BNVA) | payer OTHER, SELFPAY | PROVIDERS: PCP Physician Assistant; Visit Provider Registered Nurse | DX: S61.011A Laceration without foreign body of right thumb without damage to nail, initial encounter (principal); W26.8XXA Contact with other sharp object(s), not elsewhere classified, initial encounter | CPT/HCPCS: 99213 ==

== ENCOUNTER → 2024-04-05 09:15 | Outpatient (BNVA) | payer OTHER, SELFPAY | PROVIDERS: PCP Physician Assistant; Visit Provider Registered Nurse | DX: S61.011A Laceration without foreign body of right thumb without damage to nail, initial encounter (principal); W26.8XXA Contact with other sharp object(s), not elsewhere classified, initial encounter | CPT/HCPCS: 99213 ==

== ENCOUNTER 2024-09-21 12:27 | Outpatient (AMB) | payer BC, SELFPAY ==
[2024-09-21 12:33] VITALS: BP 128/68; PULSE 83; O2SAT 96; BMI 28.5
--- NOTE | 2024-09-21 12:33 | MHC.PC.OV ---
Vital Signs 09/21/24 12:33 Height 5 ft 7 in Weight 182 lb BMI 28.5 BP 128/68 Blood Pressure Location Lt brachial Position Sitting Pulse 83 Pulse Source Pulse Oximeter Pulse Oximetry (%) 96 Oxygen Delivery Method Room Air Intake Visit Reasons: Annual Exam Allergies No Known Allergies Allergy (Verified 09/21/24 12:34) Medication List - Last Reconciled 09/21/24 by Debbie Cornejo MD acyclovir 5% (Zovirax) 1 appl topical .five times per day 4 days cholecalciferol (vitamin D3) 250 mcg PO QWEEK hydrochlorothiazide 12.5 mg PO DAILY omega 9-akc-ezx-fish oil 60-90-500 mg (Fish Oil) 1 cap PO DAILY Tobacco use date assessed: 09/21/24 Dental Screening Dental Screen Date: 09/21/24 Did you have a dental visit in the last 12 months?: Yes Did you have a dental problem in the last 6 months where you did not have access to dental care?: No Was dental information given to patient?: Patient has dentist HPI Annual Exam HPI Details The patient is a 39-year-old male presenting with concerns regarding wrist nerve compression and management of essential hypertension. The wrist issue began last year, with a reported weird sensation around the area despite having regained all movement. Orthopedics assessed possible nerve compression, and imaging studies showed no bone abnormalities. The patient was instructed to continue monitoring. Additionally, the patient has a history of hypertension, occasionally managed with hydrochlorothiazide, which he takes intermittently. He resumed the medication recently due to increased weight gain and lack of exercise. He experiences polyuria initially with the medication, although this stabilizes over time. There's a risk mentioned of cramps, warranting future blood tests. The patient is not allergic to any medications and supplements with vitamin D (approximately 10,000 units weekly) and fish oil, although the latter's efficacy was questioned. - Blood pressure monitoring and management with intermittent hydrochlorothiazide. - Dietary considerations to reduce salt intake, especially from processed foods. - Encouragement to maintain hydration, especially when on diuretic therapy. - Alcohol consumption discussion: limited intake recommended. - Seasonal allergy medication consideration with options provided. - Discussions around the importance of regular exercise and weight management. - Exercise: Limited currently, contributing to weight gain. - Alcohol Use: 3-4 times weekly, 4-5 beers per session. - Smoking: Patient quit smoking approximately 6 years ago. - Diet: Limited packaged food consumption, occasional dining out. - Supplements: Vitamin D and fish oil. - General: Denies weight changes, chronic fatigue. - Cardiovascular: Denies chest discomfort or shortness of breath. - Gastrointestinal: Denies heartburn. - Genitourinary: Reports increased urination on hydrochlorothiazide; denies nocturia. - Neurological: Denies dizziness, headaches. - Respiratory: Denies wheezing or cough. - Allergic/Immunologic: Reports worsening seasonal allergies, particularly in summer with stuffy nose and itchy eyes. [facility] Medical History (Updated 09/21/24 @ 12:42 by Debbie Cornejo MD) Borderline hypercholesterolemia Alcohol abuse counseling and surveillance Left elbow pain ADD (attention deficit disorder) Thyroid nodule Surgical History History of partial thyroidectomy Family History Mother No problems noted. Father Medical history unknown Brother No problems noted. 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 1. Little interest or pleasure in doing things: not at all 2. Feeling down, depressed, or hopeless: not at all 3. Trouble falling or staying asleep, or sleeping too much: several days 4. Feeling tired or having little energy: several days 5. Poor appetite or overeating: not at all 6. Feeling bad about yourself - or that you are a failure or have let yourself or your family down: not at all 7. Trouble concentrating on things, such as reading the newspaper or watching television: not at all 8. Moving or speaking so slowly that other people could have noticed. Or the opposite - being so fidgety or restless that you have been moving around a lot more than usual: not at all 9. Thoughts that you would be better off or of hurting yourself in some way: not at all Total score: 2 Source: Developed by Drs. Franco Manzano, Alyssa Bautista, Erick Santiago and colleagues, with an educational juan pablo from [employer]. Thrive Questionnaire Date Thrive assessed: 09/21/24 I am a: Patient What is your living situation today?: I have a steady place to live Within the past 12 months, did the food you bought not last and you didn't have the money to get more?: I choose not to answer this question Within the past 12 months, did you worry whether your food would run out before you got money to buy more?: I choose not to answer this question Do you have trouble paying for medicines?: I choose not to answer this question Do you have trouble getting transportation to medical appointments?: No Do you have trouble paying your heating and electricity bill?: I choose not to answer this question Do you have trouble taking care of your child, family member or friend?: No Do you have trouble with day-to-day activities such as bathing, preparing meals, shopping, managing finances, etc.?: No Are you currently unemployed and looking for a job?: No Are you interested in more education?: No Please select the resources that you would like help with: None Currently or been in a relationship where the following occur: No concerns reported THRIVE Score: 0 AUDIT C Alcohol Use Questionnaire (AUDIT-C) 1. How often do you have a drink containing alcohol?: 4 or more times a week 2. How many drinks containing alcohol do you have on a typical day when you are drinking?: 3 or 4 3. How often do you have six or more drinks on one occasion?: Weekly Total Score: 8 SYLVIE-7 AMB Questionnaire SYLVIE-7 Date SYLVIE - 7 assessed: 09/21/24 Feeling nervous, anxious, or on edge: 0 = Not at all Not being able to stop or control worryin = Not at all Worrying too much about different things: 1 = Several days Trouble relaxin = Several days Being so restless that it is hard to sit still: 0 = Not at all Becoming easily annoyed or irritable: 1 = Several days Feeling afraid as if something awful might happen: 0 = Not at all Total SYLVIE-7 score (0-4 normal; 5-9 mild; 10-14 moderate; 15-21 severe): 3 Source: Developed by Drs. Franco Manzano, Alsysa Bautista, Erick Santiago and colleagues, with an educational juan pablo from [employer]. Review of Systems Const Denies poor appetite and Denies weakness Eyes Denies no additional complaints ENT Reports Normal hearing present, Denies dizziness, Denies nasal congestion, Denies tinnitus and Denies sore throat Card Denies chest pain, Denies syncope, Denies rapid heart rate and Denies dyspnea Resp Denies cough and Denies dyspnea GI Denies change in stool character, Reports constipation, Denies diarrhea, Denies nausea and Denies vomiting Denies dysuria and Denies urinary frequency Neuro Reports Normal hearing present, Denies confusion, Denies dizziness, Denies syncope and Denies weakness Psych Denies confusion Physical exam (Primary Care) Vital Signs: Last Vital Signs Pulse 83 09/21/24 12:33 BP 128/68 09/21/24 12:33 Pulse Ox 96 09/21/24 12:33 Oxygen Delivery Method Room Air 09/21/24 12:33 BMI result Body Mass Index 28.5 Tobacco/Smoking Status: Tobacco use Status Tobacco use date assessed 09/21/24 09/21/24 12:38 Patient Tobacco Use Status Former Tobacco user 09/21/24 12:38 Tobacco use type Cigarette 09/21/24 12:38 e-Cigarette/Vaping Use Never Used 09/21/24 12:38 PHQ-9: PHQ-9 Score PHQ-9: Total score 2 09/21/24 12:38 Thrive Assessment: Date of Thrive Assessment Date Thrive assessed 09/21/24 09/21/24 12:38 Currently or been in a relationship where the following occur: No concerns reported Const General: No confusion Orientation/consciousness: No confusion HENMT Head: Yes normocephalic Ears: external ears normal and TM's normal bilaterally Face and sinus: Yes normal facial exam Mouth: moist mucous membranes Throat: Yes tonsils normal Eyes Conjunctivae: conjunctivae normal Pupils: Equal, round and reactive pupils present and Pupil accommodation reflex normal Direct Ophthalmoscopy: normal light reflex Neck Neck: No lymphadenopathy Thyroid: Thyroid normal Chest Chest palpation & inspection: normal inspection of the chest Resp Effort & Inspection: normal respiratory effort and no audible wheezes Auscultation: clear to auscultation bilaterally, no crackles, no wheezes and lung sounds not diminished Cardio Rate: regular rate Rhythm: regular rhythm Peripheral pulses: radial pulses present and dorsalis pedis present GI Other: rectal visual negative Palpation (GI): no masses Auscultation: normal bowel sounds and normoactive bowel sounds Rectal Exam - Male: Yes deferred Male General Exam: Yes normal external exam Skin General skin exam: no rashes or lesions noted Rashes: no rashes Neuro General: No confusion Cranial nerves: Yes Equal, round and reactive pupils present and Yes Normal hearing present Cognition (Neuro): normal cognition Gait exam (Neuro): Normal gait present Motor exam (neuro): 5/5 motor strength present throughout Deep tendon reflexes (DTR's): Right brachioradialis reflex intensity grade: 2+, Left brachioradialis reflex intensity grade: 2+, Right patellar reflex intensity grade: 2+ and Left patellar reflex intensity grade: 2+ Extrem General: No edema Coding Level of Care Code Est Pt Prev Care 40-64y(04563) Diagnoses Annual physical exam Z00.00 Overweight (BMI 25.0-29.9) E66.3 Hypertension I10 Assessment & Plan Assessment & Plan (1) Annual physical exam: Code(s): Z00.00 - Encounter for general adult medical examination without abnormal findings Category: Medical (2) Overweight (BMI 25.0-29.9): Code(s): E66.3 - Overweight Category: Medical (3) Hypertension: Code(s): I10 - Essential (primary) hypertension Category: Medical Plan - Continue hydrochlorothiazide for hypertension management; monitor for side effects such as cramps. - Blood work to assess kidney function and electrolytes. - Advise to reduce alcohol intake. - Recommend Claritin or Nia for seasonal allergy management; consider Zyrtec on non-working days for additional relief. - Discuss safe salt usage, encourage active lifestyle, and maintain a healthy diet. - Discuss potential for allergy testing in the future if symptoms escalate. I reviewed the management plan for essential hypertension, emphasizing the importance of medication adherence and monitoring for side effects such as cramps, which could warrant blood tests. I discussed the continuation or adjustment of vitamin D and fish oil supplementation, noting current research on effectiveness. We went over the challenges associated with seasonal allergies and provided medication options, highlighting the non-drowsy choices for daily function. I advised on lifestyle factors, including dietary salt, exercise, and alcohol consumption, underlining the potential health impacts. We concluded with an agreement on follow-up measures and obtaining the required blood work. - Continue taking hydrochlorothiazide as directed and monitor for any side effects. - Complete fasting blood work as discussed. - Limit alcohol intake, ideally not exceeding moderate drinking guidelines. - Use [id number] antihistamines like Claritin or Nia for allergies. - Maintain a balanced diet with low sodium, aiming for regular physical activity. - Keep hydrated, especially when on diuretic treatment. - Report any new or worsening symptoms or concerns. Orders: Orders Free T4 (Free Thyroxine) Today I10 - Essential (primary) hypertension Lipid Panel Today E78.00 - Pure hypercholesterolemia, unspecified, I10 - Essential (primary) hypertension Complete Blood Count Auto Diff Today I10 - Essential (primary) hypertension Comprehensive Met. Panel Today I10 - Essential (primary) hypertension Thyroid Stimulating Hormone Today I10 - Essential (primary) hypertension Vitamin B12 and Folate Today I10 - Essential (primary) hypertension
== END 2024-09-21 13:06 | disposition home or self-care (01) ==
PROVIDERS: PCP Internal Medicine; Visit Provider Internal Medicine
DX: Z00.00 Encounter for general adult medical examination without abnormal findings (principal); E66.3 Overweight; I10 Essential (primary) hypertension

== ENCOUNTER → 2024-09-21 12:27 | Outpatient (BNVA) | payer BC, OTHER, SELFPAY | PROVIDERS: PCP Internal Medicine; Visit Provider Internal Medicine ==

== ENCOUNTER → 2025-02-13 15:27 | Outpatient (BNVA) | payer OTHER, SELFPAY | PROVIDERS: PCP Internal Medicine; Visit Provider Physician Assistant Medical | DX: S39.012A Strain of muscle, fascia and tendon of lower back, initial encounter (principal); X50.0XXA Overexertion from strenuous movement or load, initial encounter | CPT/HCPCS: 99202 ==

== ENCOUNTER → 2025-02-17 10:12 | Outpatient (BNVA) | payer OTHER, SELFPAY | PROVIDERS: PCP Internal Medicine; Visit Provider Physician Assistant | DX: S39.012A Strain of muscle, fascia and tendon of lower back, initial encounter (principal); X50.0XXA Overexertion from strenuous movement or load, initial encounter; Z02.79 Encounter for issue of other medical certificate | CPT/HCPCS: 99213 ==